=== PATIENT | male | born 1965 | race Caucasian/White ===

== ENCOUNTER 2017-11-17 01:58 | Inpatient (IN) | payer OTHER ==
[~2017-11-17] VITALS: Ht 185.4 cm; Wt 119.3 kg
--- NOTE | 2017-11-17 14:28 | Admission Core Measures ---
Acute Coronary Syndrome (CM) ACS Core Measures Acute Coronary Syndrome Diagnosis No Congestive Heart Failure (NEW) CHF Core Measures Congestive Heart Failure Diagnosis No Cerebrovascular Accident CVA Core Measures CVA/TIA Diagnosis No Venous Thromboembolism VTE Core Ascencion (View Protocol) VTE Risk Factors Surgery No Mechanical VTE Prophylaxis d/t N/A MechProphylax Ordered No VTE Pharm Prophylaxis d/t NA PharmProphylax ordered Problem List As ranked by this Provider includes Assessment & Plan 1. History of revision of total replacement of left knee joint HOME MEDS Home Med List No Known Home Medications
--- NOTE | 2017-11-17 14:30 | Patient Discharge Instructions ---
Discharge Instructions General Discharge Information You were seen/treated for: Knee pain You had these procedures: Revision of left total knee replacement Watch for these problems: See pre printed sheet, Other wound care: Keep incision clean and dry. Diet Continue normal diet: Yes Activity Activity Self Limited: Yes Activity Limited to: Weight bear as tolerated Acute Coronary Syndrome Inclusion Criteria At DC or during hospital stay patient has or had the following: ACS DIAGNOSIS No Discharge Core Measures Meds if any: Prescribed or Continued at Discharge Meds if any: NOT Prescribed or Continued at Discharge Congestive Heart Failure Inclusion Criteria At DC or during hospital stay patient has or had the following: CHF DIAGNOSIS No Discharge Core Measures Meds if any: Prescribed or Continued at Discharge Meds if any: NOT Prescribed or Continued at Discharge Cerebrovascular accident Inclusion Criteria At DC or during hospital stay patient has or had the following: CVA/TIA Diagnosis No Discharge Core Measures Meds if any: Prescribed or Continued at Discharge Meds if any: NOT Prescribed or Continued at Discharge Venous thromboembolism Inclusion Criteria VTE Diagnosis No VTE Type NONE VTE Confirmed by (Test) NONE Discharge Core Measures - Per Current guidelines, there needs to be overlap - treatment for the first 5 days of Warfarin therapy. - If discharged on Warfarin prior to 5 days of - overlap therapy, the patient will need to be - assessed for post discharge needs including - *Post discharge parental anticoagulation - *Warfarin and/or parental anticoagulation education - *Follow up date to check INR post discharge At least 5 days overlap therapy as Inpatient No Meds if any: Prescribed or Continued at Discharge Note: Overlap Therapy is Warfarin and Anticoagulant Meds if any: NOT Prescribed or Continued at Discharge
[2017-11-17] MEDS ORDERED: OMEPRAZOLE20 M3 PO (14:32)
[2017-11-17] MEDS ORDERED: COLACE100 M1 PO (14:32)
[2017-11-17] MEDS ORDERED: DILAUDID2 M1 PO (14:32)
[2017-11-17] MEDS ORDERED: ASPIRIN EC325 M2 PO (14:32)
[2017-11-17] MEDS ORDERED: MIRALAX17 G1 PO (14:32)
--- NOTE | 2017-11-17 14:35 | Surg Short-stay <48hrs Dis Sum ---
Visit Information Visit Dates Admission Date: 11/17/17 Discharge Date: 11/18/17 Surgical Short Stay DC Summary Admission Diagnosis: Failed left total knee Final Diagnosis: Same, s/p revision L total knee Procedure(s): L total knee revision - see operative report Summary/Significant Findings: Pt underwent a revision of a left total knee and was brought to the PACU in stable condition. Post op he was able to ambulate with PT, voided spontaneously , his pain was controlled with oral pain medication. He was cleared for discharge home with services. Condition at Discharge: good Discharge Disposition: home health services Discharge instructions provided to patient/family: Yes Post discharge follow-up plan: Scheduled appt with Dr Felder in 6 weeks. Call sooner if needed.
--- NOTE | 2017-11-17 15:44 | Operative Report ---
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 After induction of spinal anesthesia and administration of appropriate pre-operative antibiotics, the patient was positioned supine on the operating room table and all bony prominences were well padded. A well-padded pneumatic tourniquet was placed on the left upper thigh. After performing a surgical timeout, the left lower extremity was prepped and draped in the usual sterile fashion. After exsanguination with Esmarch the tourniquet was inflated to 250mm of mercury. Utilizing the previous incision, a standard medial parapatellar approach was made to the knee. This was carried down through skin and subcutaneous tissue to the level of the fascia. Meticulous hemostasis was maintained with Bovie electrocautery. The extensor mechanism and patellar retinaculum were opened sharply. Upon entering the intra-articular space, it was noted that the polyethylene cam head sheared off the main body of the polyethylene insert. Scar tissue was resected from the medial and lateral gutters until the patella could be fully mobilized. The knee was inspected and the metal components were noted to be well fixed. The patella was also noted to be well fixed. The polyethylene implant was then disengaged from the tibial baseplate. The knee was copiously irrigated. The knee was then trialed with a 17 mm polyethylene insert. This yielded excellent stability in the coronal and sagittal plane. The trial component was removed and a Raza NexGen Legacy LPS-Flex size E F by 17 mm polyethylene insert was impacted. The extensor mechanism and patellar retinaculum were repaired using interrupted #1 vicryl suture. The skin was re-approximated with 2-0 vicryl and closed with chaparro. A sterile dressing was applied, the tourniquet was deflated, the patient was awakened and taken to the recovery room in satisfactory condition.
--- NOTE | 2017-11-17 16:55 | PN- Orthopedic ---
Subjective Subjective: Post op check Awake, alert post op No complaints Has not ambulated yet Has not voided yet Denies nausea, pain is well controlled Objective Vital Signs and I&Os Intake & Output 11/17 1600 11/17 0811/17 0000 11/16 1600 11/16 0811/16 0000 Intake Total Output Total Balance Patient 270 lb Weight Physical Exam: VSS, afebrile General: alert and oriented times three Chest: clear anteriorly bilaterally, RRR Abd: soft, good bs Ext: warm, no edema, normosensate Wd: dressed, dry, ice pack in place Assessment/Plan Assessment/Plan 52yo male s/p L Total knee revision PT - wbat pain management asa 325mg po bid for dvt ppx alps/teds due to void Core Measures Venous Thromboembolism VTE Risk Factors Surgery No Mechanical VTE Prophylaxis d/t N/A MechProphylax Ordered No VTE Pharm Prophylaxis d/t NA PharmProphylax ordered
[2017-11-17 16:57] VITALS: BP 118/90
[2017-11-17 19:12] VITALS: BP 124/74
[2017-11-17 21:00] VITALS: BP 122/58
[2017-11-17 22:54] VITALS: BP 119/71
[2017-11-18 03:22] VITALS: BP 130/70
[2017-11-18 07:48] VITALS: BP 130/74
--- NOTE | 2017-11-18 09:29 | PN- Orthopedic ---
Subjective Subjective: pod#1 s/p left tka revision(poly exchange) no major issues overnight deneis cp, sob, no n+v with diet Objective Vital Signs and I&Os Vital Signs Date Time Temp Pulse Resp B/P B/P Pulse O2 O2 Flow FiO2 Mean Ox Delivery Rate 11/18 0748 97.8 63 16 130/74 98 Room Air 11/18 0322 98.4 63 18 130/70 96 11/17 2254 998.1 66 18 119/71 98 Room Air 11/17 2100 97.8 67 18 122/58 96 Room Air 11/17 1912 97.7 63 18 124/74 97 Room Air 11/17 1657 96.0 47 16 118/90 97 Room Air Intake & Output 11/18 1600 11/18 0800 / 0000 11/17 1600 11/17 0800 11/17 0000 Intake Total 1000 640 Output Total 600 675 Balance 400 -35 Intake, IV 800 400 Intake, Oral 200 240 Output, Urine 600 675 Patient 263 lb 270 lb Weight Weight Bed scale Measurement Method Physical Exam: cv: rrr lungs: clear abd: soft, +bs ext: drsg dry distal cms intact no calf tenderness Assessment/Plan Assessment/Plan ortho stable plan oob with pt possible d/c later today Core Measures Venous Thromboembolism VTE Risk Factors Surgery No Mechanical VTE Prophylaxis d/t N/A MechProphylax Ordered No VTE Pharm Prophylaxis d/t NA PharmProphylax ordered
[2017-11-18 10:05] LABS: ABSOLUTE BASOPHIL COUNT 0 /CUMM (0.0-0.2); ABSOLUTE EOSINOPHIL COUNT 0.2 /CUMM (0.0-0.7); ABSOLUTE GRANULOCYTE CT 4.9 /CUMM (1.4-6.5); ABSOLUTE LYMPH COUNT 1.4 /CUMM (1.2-3.4); ABSOLUTE MONOCYTE COUNT 0.5 /CUMM (0.10-0.60); BASOPHIL % 0.3 % (0.0-2.0); EOSINOPHIL % 3.2 % (0-5); GRANULOCYTE % 69.9 % (42.2-75.2); HEMATOCRIT 36.3 % (42-52); MEAN CORPUSCULAR HGB 25.9 PG (27.0-31.0); MEAN CORPUSCULAR HGB CONC 32.9 G/DL (33.0-37.0); MEAN CORPUSCULAR VOLUME 78.7 FL (80.0-94.0); MEAN PLATELET VOLUME 8.3 FL (7.4-10.4); PLATELET COUNT 226 /CUMM (130-400); RBC DISTRIBUTION WIDTH 14.2 % (11.5-14.5); RED BLOOD CELL CT 4.61 /CUMM (4.70-6.10)
[2017-11-18 11:08] VITALS: BP 128/68
== END 2017-11-18 12:45 | disposition home health service (06) | DRG 489 ==
LOC: 2NB 01:58 → SDA 01:58 → ENRESERV 16:06 → 2NB 16:56 → ENPENDDIS 11-18 11:22 → ENTRNSPT 11-18 12:24 → EDTRNSPTSTS 11-18 12:40 → 2NB 11-18 12:45 → CMPTRNSPT 11-18 12:56
PROVIDERS: Physician Assistant Surgical
PROC: 0SPD09Z Removal of Liner from Left Knee Joint, Open Approach (ICD-10-PCS; principal; 2017-11-17)
PROC: 3E0T3BZ Introduction of Anesthetic Agent into Peripheral Nerves and Plexi, Percutaneous Approach (ICD-10-PCS; principal; 2017-11-17)
PROC: 0SUW09Z Supplement Left Knee Joint, Tibial Surface with Liner, Open Approach (ICD-10-PCS; principal; 2017-11-17)
DX: T84.093A Other mechanical complication of internal left knee prosthesis, initial encounter (principal); R73.03 Prediabetes
CPT/HCPCS: 2NBSP; 36415; 36592; 82436; 97112-GO; 97116-GO; 97161-GP; C1713; C9290; J0131; J0690; J7042; Q2036